=== PATIENT | male | born 1980 | race African-American/Black ===

== ENCOUNTER 2016-10-23 01:31 | Emergency (ER) | payer BC ==
[2016-10-23 01:40] VITALS: BP 135/86
[2016-10-23] MEDS ORDERED: Albuterol/Ipratropium 3.0-0.5 MG/3 ML Neb Soln NEB ONE (02:04)
--- NOTE | 2016-10-23 02:08 | EDM.PDOC ---
ED HPI GENERAL MEDICAL PROBLEM - General Chief Complaint: Respiratory Problem Stated Complaint: ASTHMA/NEEDS AN INHALER Time Seen by Provider: 10/23/16 01:53 Source of Information: Reports: Patient History Limitations: Reports: No Limitations - History of Present Illness INITIAL COMMENTS - FREE TEXT/NARRATIVE: This is a 36-year-old male. He has run out of his albuterol inhaler on Tuesday he started having increased wheezing today. He denies upper respiratory infections no sore throat no ear pain no nausea vomiting or diarrhea. Apparently he has pretty severe asthma and uses an inhaler on a daily basis to prevent the wheezing. Once he ran out of the inhaler of course the wheezing has caught up with him. He denies any fever or chills and no other acute symptoms. Upper Back Pain Score (Numeric/FACES): 3 - Related Data Allergies Allergy/AdvReac Type Severity Reaction Status Date / Time sulfamethoxazole Allergy Swelling Verified 10/23/16 01:37 [From Bactrim] trimethoprim [From Bactrim] Allergy Swelling Verified 10/23/16 01:37 Home Meds: Home Meds Albuterol Sulfate [Proair Hfa] 2 puff INH ASDIRECTED PRN 03/07/15 [History] Albuterol Sulfate [Ventolin Hfa] 2 gm IH Q6H PRN #1 [email or web address] 10/23/16 [Rx] Past Medical History Respiratory History: Reports: Asthma - Past Surgical History Respiratory Surgical History: Reports: None Social & Family History - Tobacco Use Smoking Status *Q: Never Smoker Second Hand Smoke Exposure: No - Caffeine Use Caffeine Use: Reports: Coffee, Energy Drinks - Alcohol Use Days Per Week of Alcohol Use: 2 Number of Drinks Per Day: 5 Total Drinks Per Week: 10 - Recreational Drug Use Recreational Drug Use: No ED ROS GENERAL - Review of Systems Review Of Systems: See Below Constitutional: Denies: Fever, Chills HEENT: Denies: Rhinitis, Sinus Problem, Throat Pain Respiratory: Reports: Shortness of Breath, Wheezing, Cough Cardiovascular: Denies: Chest Pain Endocrine: Reports: No Symptoms GI/Abdominal: Denies: Diarrhea, Nausea, Vomiting : Reports: No Symptoms Musculoskeletal: Reports: No Symptoms Skin: Reports: No Symptoms Neurological: Reports: No Symptoms Psychiatric: Reports: No Symptoms ED EXAM, GENERAL - Physical Exam Exam: See Below Exam Limited By: No Limitations General Appearance: Alert, WD/WN, No Apparent Distress, Other (Patient does have some mild audible wheezing noted but does not appear to be in distress) Ears: Normal External Exam, Normal Canal, Normal TMs Nose: Normal Mucosa. No: Nasal Drainage, Clear Rhinorrhea Throat/Mouth: Normal Inspection, Normal Lips, Normal Voice, No Airway Compromise Head: Normocephalic Neck: Supple Respiratory/Chest: Other (Inspiratory and expiratory wheezing with a mild prolonged expiratory phase, but is wheezing in all [place]) Cardiovascular: Regular Rate, Rhythm, No Murmur Back Exam: Full Range of Motion Extremities: Normal Inspection, Normal Range of Motion Neurological: Alert, Oriented Psychiatric: Normal Affect, Normal Mood Skin Exam: Warm, Dry Course - Vital Signs Last Recorded V/S: Last Vital Signs Temp 98.2 F 10/23/16 01:37 Pulse 84 10/23/16 02:13 Resp 20 10/23/16 01:37 BP 135/86 10/23/16 01:37 Pulse Ox 94 L 10/23/16 01:45 - Orders/Labs/Meds Orders: Active Orders 24 hr Category Date Time Status RT Aerosol Therapy [RC] ASDIRECTED Care 10/23/16 02:04 Active Meds: Medications Discontinued Medications Generic Name Dose Route Start Last Admin Trade Name Freq PRN Reason Stop Dose Admin Albuterol/Ipratropium 3 ml 10/23/16 02:04 10/23/16 02:13 Duoneb 3.0-0.5 Mg/3 Ml NEB 10/23/16 02:05 3 ml ONETIME ONE Administration - Re-Assessments/Exams Free Text/Narrative Re-Assessment/Exam: 10/23/16 02:39 Patient is breathing much better after the aerosol treatment. He wants to go home he just needs a albuterol inhaler. 10/23/16 02:43 When I listened to his lung sounds he has no inspiratory wheezing and minimal end expiratory wheezing noted Departure - Departure Time of Disposition: 02:43 Disposition: Home, Self-Care 01 Condition: good Clinical Impression: Exacerbation of asthma - Discharge Information Prescriptions: Albuterol Sulfate [Ventolin Hfa] 2 gm IH Q6H PRN #1 hfa.aer.ad PRN Reason: Wheezing Instructions: Asthma, Adult Forms: ED Department Discharge Additional Instructions: Use the inhaler 2 puffs every 6 hours as needed for wheezing, if your symptoms get worse especially if you develop an upper respiratory infection increasing cough that is productive or if fever follow up with your family doctor or return to the ER for reevaluation - My Orders Last 24 Hours: My Active Orders 10/23/16 02:04 RT Aerosol Therapy [RC] ASDIRECTED - Assessment/Plan Last 24 Hours: My Active Orders 10/23/16 02:04 RT Aerosol Therapy [RC] ASDIRECTED
[2016-10-23] MEDS ORDERED: Albuterol 6.7 GM Inhaler INH ONE (02:42)
== END 2016-10-23 03:04 | disposition home or self-care (01) ==
LOC: JD.ED 01:31
DX: J45.901 Unspecified asthma with (acute) exacerbation (principal); Z88.1 Allergy status to other antibiotic agents
CPT/HCPCS: 94664; 99283; A9270